=== PATIENT | male | born 1945 | race Caucasian/White ===

== ENCOUNTER → 2023-11-07 08:02 | Outpatient (REF) | payer MEDICARE, SELFPAY ==
[2023-11-07 08:58] LABS: % Basophils 0.7 % (0-2); % Eosinophils 6.3 % (0-6); % Immature Granulocytes 0.2 % (0-0.5); % Lymphocytes 40.2 % (20.5-51.1); % Neutrophils 41.6 % (42.2-75.2); Absolute Eosinophils 0.3 10^3/uL (0-0.7); Absolute Lymphocytes 1.7 10^3/uL (1.2-3.4); Absolute Monocytes 0.5 10^3/uL (0.1-0.6); Absolute Neutrophils 1.8 10^3/uL (1.4-6.5); Hematocrit 44.8 % (39.0-52.0); Hemoglobin 15.5 g/dL (13.0-18.0); Mean Corp Hgb Conc. 34.6 g/dL (33.0-37.0); Mean Corpuscular Hgb 33.2 pg (27.0-31.0); Mean Corpuscular Volume 95.9 fL (80.0-94.0); Mean Platelet Volume 10.6 fL (7.4-10.4); Nucleated Red Blood Cells % 0 % (-); Platelet Count 108 10^3/uL (130-400); Red Blood Cell Count 4.67 10^6/uL (4.70-6.10); Red Cell Dist. Width 12.7 % (11.5-14.5); White Blood Cell Count 4.3 10^3/uL (4.8-10.8)
[2023-11-07 09:23] LABS: ALT (SGPT) 27 U/L (0-50); AST (SGOT) 31 U/L (17-59); Albumin 4.2 g/dl (3.5-5.0); Alkaline Phosphatase 71 U/L (38-126); Blood Urea Nitrogen 18 mg/dl (9-20); Calcium 9.7 mg/dl (8.4-10.2); Carbon Dioxide 27 mmol/L (22-30); Chloride 104 mmol/L (98-107); Glucose 107 mg/dl (70-99); HDL Cholesterol 45 mg/dl; LDL Cholesterol, Calculated 123 mg/dl; Potassium 4.4 mmol/L (3.5-5.1); Sodium 141 mmol/L (135-145); Total Bilirubin 1.1 mg/dl (0.2-1.3); Total Cholesterol 196 mg/dl (50-199); Total Protein 6.8 g/dl (6.3-8.2); Triglyceride 141 mg/dl (10-149); Very Low Density Lipoprotein 28 mg/dl (0-30); eGFR > 60.00
[2023-11-07 09:53] LABS: PSA, Total - Screen 0.56 ng/ml (0.0-4.0)
[2023-11-07 10:02] LABS: INR 3.09; PT 31.9 Sec (11.4-14.6)
== END ==
LOC: REG 08:02
PROVIDERS: ATTENDING PHYSICIAN Internal Medicine
DX: D68.9 Coagulation defect, unspecified (principal); D68.52 Prothrombin gene mutation; Z12.5 Encounter for screening for malignant neoplasm of prostate; E78.5 Hyperlipidemia, unspecified; Z68.26 Body mass index [BMI] 26.0-26.9, adult
CPT/HCPCS: 36415; 80053; 80061; 85025; 85610; G0103

== ENCOUNTER → 2023-11-28 08:52 | Outpatient (REF) | payer MEDICARE, SELFPAY | LOC: RAD 08:52 | PROVIDERS: ATTENDING PHYSICIAN Specialist; FAMILY PHYSICIAN Internal Medicine | DX: N20.0 Calculus of kidney (principal) | CPT/HCPCS: 74018 ==

== ENCOUNTER → 2023-12-05 07:34 | Outpatient (REF) | payer MEDICARE, SELFPAY ==
[2023-12-05 09:55] LABS: INR 2.88; PT 30.1 Sec (11.4-14.6)
== END ==
LOC: REG 07:34
PROVIDERS: ATTENDING PHYSICIAN Internal Medicine
DX: D68.9 Coagulation defect, unspecified (principal); D68.52 Prothrombin gene mutation
CPT/HCPCS: 36415; 85610

== ENCOUNTER → 2024-01-09 10:05 | Outpatient (REF) | payer MEDICARE, SELFPAY ==
[2024-01-09 11:16] LABS: INR 3.12; PT 32.1 Sec (11.4-14.6)
[2024-01-09 11:17] LABS: APTT 42.9 Sec (23.4-35.0)
== END ==
LOC: REG 10:05
PROVIDERS: ATTENDING PHYSICIAN Internal Medicine
DX: D68.52 Prothrombin gene mutation (principal)
CPT/HCPCS: 36415; 85610; 85730

== ENCOUNTER → 2024-01-24 13:41 | Outpatient (REF) | payer MEDICARE, SELFPAY ==
[2024-01-25 10:43] LABS: INR 2.53; PT 27.5 Sec (11.4-14.6)
[2024-01-25 10:44] LABS: APTT 37.7 Sec (23.4-35.0)
== END ==
LOC: REG 13:41
PROVIDERS: ATTENDING PHYSICIAN Internal Medicine
DX: D68.52 Prothrombin gene mutation (principal)
CPT/HCPCS: 36415; 85610; 85730

== ENCOUNTER → 2024-02-27 09:35 | Outpatient (REF) | payer MEDICARE, SELFPAY ==
[2024-02-27 10:46] LABS: APTT 43.3 Sec (23.4-35.0); PT 34.3 Sec (11.4-14.6)
== END ==
LOC: REG 09:35
PROVIDERS: ATTENDING PHYSICIAN Internal Medicine
DX: D68.52 Prothrombin gene mutation (principal)
CPT/HCPCS: 36415; 85610; 85730

== ENCOUNTER → 2024-03-12 10:32 | Outpatient (REF) | payer MEDICARE, SELFPAY ==
[2024-03-12 11:49] LABS: PT 31.1 Sec (11.4-14.6)
[2024-03-12 11:50] LABS: APTT 39.9 Sec (23.4-35.0)
== END ==
LOC: REG 10:32
PROVIDERS: ATTENDING PHYSICIAN Internal Medicine
DX: R79.1 Abnormal coagulation profile (principal)
CPT/HCPCS: 36415; 85610; 85730

== ENCOUNTER → 2024-03-27 09:56 | Outpatient (REF) | payer MEDICARE, SELFPAY ==
[2024-03-27 11:15] LABS: INR 2.89; PT 30.2 Sec (11.4-14.6)
[2024-03-27 11:16] LABS: APTT 39.5 Sec (23.4-35.0)
== END ==
LOC: REG 09:56
PROVIDERS: ATTENDING PHYSICIAN Internal Medicine
DX: D68.52 Prothrombin gene mutation (principal)
CPT/HCPCS: 36415; 85610; 85730

== ENCOUNTER → 2024-05-23 09:04 | Outpatient (REF) | payer MEDICARE, SELFPAY ==
[2024-05-23 12:31] LABS: APTT 41.6 Sec (23.4-35.0); INR 2.88; PT 30.6 Sec (11.4-14.6)
== END ==
LOC: REG 09:04
PROVIDERS: ATTENDING PHYSICIAN Internal Medicine
DX: D68.9 Coagulation defect, unspecified (principal)
CPT/HCPCS: 36415; 85610; 85730

== ENCOUNTER → 2024-06-20 10:00 | Outpatient (REF) | payer MEDICARE, SELFPAY ==
[2024-06-20 12:47] LABS: INR 2.49; PT 27.2 Sec (11.4-14.6)
[2024-06-20 12:48] LABS: APTT 37.6 Sec (23.4-35.0)
== END ==
LOC: REG 10:00
PROVIDERS: ATTENDING PHYSICIAN Internal Medicine
DX: D68.9 Coagulation defect, unspecified (principal)
CPT/HCPCS: 36415; 85610; 85730

== ENCOUNTER → 2024-08-09 09:26 | Outpatient (REF) | payer MEDICARE, SELFPAY ==
[2024-08-09 10:25] LABS: INR 2.04; PT 23.5 Sec (11.4-14.6)
== END ==
LOC: REG 09:26
PROVIDERS: ATTENDING PHYSICIAN Internal Medicine
DX: D68.52 Prothrombin gene mutation (principal)
CPT/HCPCS: 36415; 85610

== ENCOUNTER → 2024-09-05 08:41 | Outpatient (REF) | payer MEDICARE, SELFPAY ==
[2024-09-05 09:29] LABS: INR 3.05; PT 31.9 Sec (11.4-14.6)
== END ==
LOC: REG 08:41
PROVIDERS: ATTENDING PHYSICIAN Internal Medicine
DX: D68.9 Coagulation defect, unspecified (principal)
CPT/HCPCS: 36415; 85610; 85730

== ENCOUNTER → 2024-09-25 10:06 | Outpatient (REF) | payer MEDICARE, SELFPAY ==
[2024-09-25 11:27] LABS: INR 2.92; PT 30.9 Sec (11.4-14.6)
[2024-09-25 11:28] LABS: APTT 42.9 Sec (23.4-35.0)
== END ==
LOC: REG 10:06
PROVIDERS: ATTENDING PHYSICIAN Internal Medicine
DX: D68.9 Coagulation defect, unspecified (principal)
CPT/HCPCS: 36415; 85610; 85730

== ENCOUNTER → 2024-10-09 09:36 | Outpatient (REF) | payer MEDICARE, SELFPAY ==
[2024-10-09 11:30] LABS: INR 2.87
== END ==
LOC: REG 09:36
PROVIDERS: ATTENDING PHYSICIAN Internal Medicine
DX: D68.52 Prothrombin gene mutation (principal)
CPT/HCPCS: 36415; 85610

== ENCOUNTER → 2024-11-07 07:57 | Outpatient (REF) | payer MEDICARE, SELFPAY ==
[2024-11-07 11:27] LABS: INR 3.25; PT 33.5 Sec (11.4-14.6)
[2024-11-07 11:28] LABS: APTT 43.6 Sec (23.4-35.0)
== END ==
LOC: REG 07:57
PROVIDERS: ATTENDING PHYSICIAN Internal Medicine
DX: D68.9 Coagulation defect, unspecified (principal)
CPT/HCPCS: 36415; 85610; 85730

== ENCOUNTER → 2024-11-28 09:40 | Outpatient (REF) | payer MEDICARE, SELFPAY ==
[2024-11-28 10:23] LABS: INR 2.56; PT 27.9 Sec (11.4-14.6)
[2024-11-28 10:24] LABS: APTT 39.1 Sec (23.4-35.0)
== END ==
LOC: REG 09:40
PROVIDERS: ATTENDING PHYSICIAN Specialist; FAMILY PHYSICIAN Internal Medicine
DX: N20.0 Calculus of kidney (principal); D68.9 Coagulation defect, unspecified
CPT/HCPCS: 36415; 74018; 85610; 85730

== ENCOUNTER → 2024-12-27 09:01 | Outpatient (REF) | payer MEDICARE, SELFPAY ==
[2024-12-27 10:31] LABS: INR 3.31
== END ==
LOC: REG 09:01
PROVIDERS: ATTENDING PHYSICIAN Internal Medicine
DX: D68.9 Coagulation defect, unspecified (principal); Z79.01 Long term (current) use of anticoagulants
CPT/HCPCS: 36415; 85610

== ENCOUNTER → 2025-01-16 09:42 | Outpatient (REF) | payer MEDICARE, SELFPAY ==
[2025-01-16 10:51] LABS: % Basophils 0.7 % (0-2); % Lymphocytes 33.8 % (20.5-51.1); % Monocytes 10.4 % (1.7-9.3); % Neutrophils 51.1 % (42.2-75.2); Absolute Eosinophils 0.2 10^3/uL (0-0.7); Absolute Lymphocytes 1.4 10^3/uL (1.2-3.4); Absolute Monocytes 0.4 10^3/uL (0.1-0.6); Absolute Neutrophils 2.1 10^3/uL (1.4-6.5); Hematocrit 43.6 % (39.0-52.0); Hemoglobin 15.6 g/dL (13.0-18.0); Mean Corp Hgb Conc. 35.8 g/dL (33.0-37.0); Mean Corpuscular Hgb 33.9 pg (27.0-31.0); Mean Corpuscular Volume 94.8 fL (80.0-94.0); Mean Platelet Volume 11.5 fL (7.4-10.4); Nucleated Red Blood Cells % 0 % (-); Platelet Count 117 10^3/uL (130-400); White Blood Cell Count 4.1 10^3/uL (4.8-10.8)
[2025-01-16 10:54] LABS: INR 2.73; PT 29.3 Sec (11.4-14.6)
[2025-01-16 10:55] LABS: APTT 39.3 Sec (23.4-35.0)
[2025-01-16 11:31] LABS: ALT (SGPT) 30 U/L (0-50); AST (SGOT) 31 U/L (17-59); Albumin 4.6 g/dl (3.5-5.0); Alkaline Phosphatase 68 U/L (38-126); Blood Urea Nitrogen 15 mg/dl (9-20); Carbon Dioxide 28 mmol/L (22-30); Chloride 106 mmol/L (98-107); Glucose 102 mg/dl (70-99); HDL Cholesterol 44 mg/dl; LDL Cholesterol, Calculated 115 mg/dl; Potassium 4.5 mmol/L (3.5-5.1); Sodium 144 mmol/L (135-145); Total Bilirubin 1.3 mg/dl (0.2-1.3); Total Cholesterol 190 mg/dl (50-199); Total Protein 7.2 g/dl (6.3-8.2); Triglyceride 156 mg/dl (10-149); Very Low Density Lipoprotein 31 mg/dl (0-30); eGFR > 60.00
[2025-01-16 12:02] LABS: PSA, Total - Screen 0.67 ng/ml (0.0-4.0)
== END ==
LOC: REG 09:42
PROVIDERS: ATTENDING PHYSICIAN Internal Medicine
DX: R73.9 Hyperglycemia, unspecified (principal); Z00.00 Encounter for general adult medical examination without abnormal findings; Z12.5 Encounter for screening for malignant neoplasm of prostate; D68.9 Coagulation defect, unspecified; Z79.01 Long term (current) use of anticoagulants; Z79.899 Other long term (current) drug therapy
CPT/HCPCS: 36415; 80053; 80061; 85025; 85610; 85730; G0103

== ENCOUNTER → 2025-03-28 06:33 | Outpatient (REF) | payer MEDICARE, SELFPAY ==
[2025-03-28 10:30] LABS: INR 2.78; PT 29.7 Sec (11.4-14.6)
[2025-03-28 10:32] LABS: APTT 41.7 Sec (23.4-35.0)
== END ==
LOC: REG 06:33
PROVIDERS: ATTENDING PHYSICIAN Internal Medicine
DX: D68.9 Coagulation defect, unspecified (principal); Z79.01 Long term (current) use of anticoagulants
CPT/HCPCS: 36415; 85610; 85730

== ENCOUNTER → 2025-04-29 09:34 | Outpatient (REF) | payer MEDICARE, SELFPAY ==
[2025-04-29 10:02] LABS: INR 3.17; PT 32.4 Sec (11.4-14.6)
== END ==
LOC: REG 09:34
PROVIDERS: ATTENDING PHYSICIAN Internal Medicine
DX: D68.9 Coagulation defect, unspecified (principal); D68.52 Prothrombin gene mutation
CPT/HCPCS: 36415; 85610

== ENCOUNTER → 2025-06-03 08:36 | Outpatient (REF) | payer MEDICARE, SELFPAY ==
[2025-06-03 11:02] LABS: INR 2.94; PT 30.6 Sec (11.4-14.6)
[2025-06-03 11:03] LABS: APTT 40.4 Sec (23.4-35.0)
== END ==
LOC: REG 08:36
PROVIDERS: ATTENDING PHYSICIAN Internal Medicine
DX: D68.9 Coagulation defect, unspecified (principal); Z79.01 Long term (current) use of anticoagulants
CPT/HCPCS: 36415; 85610; 85730

== ENCOUNTER → 2025-07-03 09:47 | Outpatient (REF) | payer MEDICARE, SELFPAY ==
[2025-07-03 10:41] LABS: APTT 47.2 Sec (23.4-35.0); INR 2.97; PT 31.3 Sec (11.4-14.6)
== END ==
LOC: REG 09:47
PROVIDERS: ATTENDING PHYSICIAN Internal Medicine
DX: D68.9 Coagulation defect, unspecified (principal); D68.52 Prothrombin gene mutation
CPT/HCPCS: 36415; 85610; 85730

== ENCOUNTER → 2025-07-11 12:44 | Outpatient (REF) | payer MEDICARE, SELFPAY | LOC: RAD 12:44 | PROVIDERS: ATTENDING PHYSICIAN Internal Medicine | DX: M25.872 Other specified joint disorders, left ankle and foot (principal); M79.662 Pain in left lower leg; W19.XXXA Unspecified fall, initial encounter | CPT/HCPCS: 73590; 73610 ==

== ENCOUNTER → 2025-08-02 10:01 | Outpatient (REF) | payer MEDICARE, SELFPAY ==
[2025-08-02 10:51] LABS: INR 3.09; PT 31.7 Sec (11.4-14.6)
[2025-08-02 10:52] LABS: APTT 41.9 Sec (23.4-35.0)
== END ==
LOC: REG 10:01
PROVIDERS: ATTENDING PHYSICIAN Internal Medicine
DX: D68.9 Coagulation defect, unspecified (principal); Z79.01 Long term (current) use of anticoagulants
CPT/HCPCS: 36415; 85610; 85730

== ENCOUNTER → 2025-09-03 11:06 | Outpatient (REF) | payer MEDICARE, SELFPAY ==
[2025-09-03 11:55] LABS: APTT 42.6 Sec (23.4-35.0); INR 3.30; PT 33.8 Sec (11.4-14.6)
== END ==
LOC: REG 11:06
PROVIDERS: ATTENDING PHYSICIAN Internal Medicine
DX: D68.9 Coagulation defect, unspecified (principal); Z79.01 Long term (current) use of anticoagulants
CPT/HCPCS: 36415; 85610; 85730